=== PATIENT | female | born 1995 | race Caucasian/White ===

== ENCOUNTER 2020-04-23 11:45 | Observation (INO) | payer OTHER ==
[2020-04-23 12:26] LABS: Basophils # (auto) 0 10 ^3/uL (0-0.2); Basophils % (auto) 0.1 % (0.0-2.0); Eosinophils # (auto) 0 10 ^3/uL (0-0.8); Eosinophils % (auto) 0.5 % (0.0-7.0); Hematocrit 36.7 % (36.0-46.0); Hemoglobin 12.5 g/dL (12.2-16.2); Lymphocytes % (auto) 22.4 % (10.0-50.0); Mean Corpuscular Hemoglobin 32.9 pg (28.0-32.0); Mean Corpuscular Hgb Conc. 34.1 g/dL (32.0-36.0); Mean Corpuscular Volume 96.3 fL (80.0-100.0); Monocytes # (auto) 0.6 10 ^3/uL (0-1.3); Neutrophils # (auto) 6.4 10 ^3/uL (1.6-8.6); Nucleated Red Blood Cells % 0.2 %; Platelet Count (auto) 177 10^3/uL (140-450); Red Blood Cells 3.81 10^6/uL (4.0-5.20); Red Cell Distribution Width 14.5 % (11.8-14.3); White Blood Cell 9.1 10^3/uL (4.4-10.8)
[2020-04-23] MEDS ORDERED: PREN-96 PO (12:26)
[2020-04-23 12:40] LABS: Albumin 2.8 g/dL (3.4-5.0); Calcium 8.4 mg/dL (8.5-10.1); Potassium 3.4 mmol/L (3.5-5.1)
[2020-04-23 12:41] LABS: INR 0.92 (0.9-1.15)
[2020-04-23 12:44] LABS: BUN/Creatinine Ratio 8.9; Bilirubin, Total 0.3 mg/dL (0.2-1.0); Total Protein 6.1 g/dL (6.4-8.2)
== END 2020-04-23 13:52 | disposition home or self-care (01) | DRG 833 ==
LOC: LDRP 11:45
PROVIDERS: ADMIT Specialist; ATTEND Specialist
DX: O13.3 Gestational [pregnancy-induced] hypertension without significant proteinuria, third trimester (principal); Z3A.37 37 weeks gestation of pregnancy
CPT/HCPCS: 36415; 59025; 80053; 81002; 84550; 85025; 85610; 85730; G0378

== ENCOUNTER 2020-04-25 07:56 | Observation (INO) | payer OTHER ==
[~2020-04-25 07:56] MED LIST: PREN-96 PO
[2020-04-25 09:59] LABS: Creatinine Clearance, Urine 39.55 mL/min (75-115)
== END 2020-04-25 10:42 | disposition home or self-care (01) ==
LOC: LDRP 07:56
PROVIDERS: ADMIT Obstetrics & Gynecology; ATTEND Obstetrics & Gynecology
DX: O13.3 Gestational [pregnancy-induced] hypertension without significant proteinuria, third trimester (principal); Z3A.37 37 weeks gestation of pregnancy
CPT/HCPCS: 36415; 59025; 81002; 82565; 82575; 84156; G0378

== ENCOUNTER 2020-04-29 13:31 | Observation (INO) | payer OTHER | END 2020-04-29 16:25 | disposition home or self-care (01) | LOC: LDRP 13:31 | PROVIDERS: ADMIT Specialist; ATTEND Specialist | DX: O13.3 Gestational [pregnancy-induced] hypertension without significant proteinuria, third trimester (principal); Z3A.38 38 weeks gestation of pregnancy | CPT/HCPCS: 59025; 76818; 81002; G0378 ==

== ENCOUNTER 2020-05-01 10:35 | Inpatient (IN) | payer OTHER ==
[2020-05-01] VITALS (11 sets, daily range): BP systolic 109–132; BP diastolic 58–73
[~2020-05-01] VITALS: Ht 160 cm; Wt 88.9 kg
[2020-05-01] MEDS ORDERED: LACTATED RINGER'S 1,000 ML IV ONE (12:22)
[2020-05-01] MEDS ORDERED: TERBUTALINE SULFATE 1 MG/ML 1ML VIAL SC ONE (12:30)
[2020-05-01] MEDS: TERBUTALINE SULFATE 1 MG/ML 1ML VIAL SC SCH ×3 (13:10→17:57)
[2020-05-01 14:12] LABS: Urine Bacteria FEW /hpf (None Seen); Urine Blood 1+ /uL (Negative); Urine Specific Gravity 1.011 (1.001-1.035); Urine WBC 11 /hpf (0 - 5)
[2020-05-01 14:16] LABS: Alcohol, Urine < 3.0 mg/dL (0-10); Amphetamine Screen, Urine NEGATIVE (NEGATIVE); Barbiturate Scree,Urine NEGATIVE (NEGATIVE); Benzodiazephine Screen, Urine NEGATIVE (NEGATIVE); Cannabinoid Screen, Urine NEGATIVE (NEGATIVE); Cocaine Screen, Urine NEGATIVE (NEGATIVE); Opiate Scree,Urine NEGATIVE (NEGATIVE); Phencyclidine Screen, Urine NEGATIVE (NEGATIVE)
[2020-05-01] MEDS ORDERED: ceFAZolin 1GM/50ML 50 ML IV ONE (14:32)
[2020-05-01] MEDS ORDERED: TETRACAINE 1% INJ 2 ML VIAL IJ ONE (14:32)
[2020-05-01] MEDS ORDERED: PHENYLEPHRINE HCL 10 MG/ML VL IV ONE (14:40)
[2020-05-01] MEDS ORDERED: ceFAZolin 1GM VL IV ONE (14:40)
[2020-05-01 14:50] LABS: Basophils # (auto) 0 10 ^3/uL (0-0.2); Basophils % (auto) 0.2 % (0.0-2.0); Eosinophils # (auto) 0 10 ^3/uL (0-0.8); Eosinophils % (auto) 0.2 % (0.0-7.0); Hematocrit 37.8 % (36.0-46.0); Hemoglobin 12.9 g/dL (12.2-16.2); Lymphocytes # (auto) 1.9 10 ^3/uL (0.4-5.4); Lymphocytes % (auto) 17.2 % (10.0-50.0); Mean Corpuscular Hemoglobin 32.9 pg (28.0-32.0); Mean Corpuscular Hgb Conc. 34.1 g/dL (32.0-36.0); Mean Corpuscular Volume 96.3 fL (80.0-100.0); Monocytes # (auto) 0.5 10 ^3/uL (0-1.3); Neutrophils # (auto) 8.4 10 ^3/uL (1.6-8.6); Neutrophils % (auto) 77.4 % (37.0-80.0); Nucleated Red Blood Cells % 0.1 %; Platelet Count (auto) 179 10^3/uL (140-450); Red Blood Cells 3.92 10^6/uL (4.0-5.20); Red Cell Distribution Width 14.3 % (11.8-14.3); White Blood Cell 10.8 10^3/uL (4.4-10.8)
[2020-05-01 15:05] LABS: INR 0.96 (0.9-1.15); Partial Thromboplastin Time 28.7 sec (23.0-31.2)
[2020-05-01 15:08] LABS: Albumin 2.9 g/dL (3.4-5.0); Calcium 8.5 mg/dL (8.5-10.1); Potassium 3.2 mmol/L (3.5-5.1)
[2020-05-01 15:12] LABS: BUN/Creatinine Ratio 12.8; Bilirubin, Total 0.5 mg/dL (0.2-1.0); Total Protein 6.2 g/dL (6.4-8.2)
[2020-05-01] MEDS ORDERED: LACTATED RINGER'S 1,000 ML IV SCH (16:02)
[2020-05-01] MEDS ORDERED: HYDROmorphone HCL 2 MG/ML VL IV PRN ×2 (16:15→16:30)
[2020-05-01] MEDS ORDERED: KETOROLAC TROMETH 30 MG/ML 1ML VIAL IV PRN ×2 (16:15→16:30)
[2020-05-01] MEDS ORDERED: ceFAZolin 1GM/50ML 50 ML IV SCH ×2 (16:15→22:00)
[2020-05-01] MEDS ORDERED: GUM (CHEWING) 1 GUM CHEW CHEW ONE (16:15)
[2020-05-01] MEDS ORDERED: ACETAMINOPHEN IV 1000 MG/100ML (10MG/ML) IV PRN (16:15)
[2020-05-01] MEDS ORDERED: ONDANSETRON HCL 4 MG/2 ML VIAL IV PRN ×2 (16:15→16:30)
[2020-05-01] MEDS ORDERED: MIDAZOLAM HCL 1MG/1ML-2 ML VIAL IV PRN (16:30)
[2020-05-01] MEDS ORDERED: DexAMETHasone SOD PHOS 10MG/1ML VIAL INJ IV PRN (16:30)
[2020-05-01] MEDS ORDERED: diphenhdrAMINE HCL 50 MG/1 ML VL IV PRN (16:30)
[2020-05-01] MEDS ORDERED: NALOXONE HCL 0.4 MG/ML VIAL IV PRN (16:30)
[2020-05-01] MEDS ORDERED: LABETALOL HCL 5 MG/ML 4ML SYRINGE IV PRN (16:30)
[2020-05-01] MEDS ORDERED: NALBUPHINE HCL 10 MG/1ml INJECTION SUBCUT ONE (16:30)
[2020-05-01] MEDS ORDERED: ePHEDrine SULFATE 50 MG/ML AMP IV PRN (16:30)
--- NOTE | 2020-05-01 16:50 | NUR ---
Post Op for LDRP: Received patient from PACU via bed to room . Patient A/A/Ox4, abdominal binder and bilateral SCD's are in place, IV fluids placed on pump and infusing per order, incisional site dressing clean/dry/intact and Farias Catheter to gravity draining clear yellow urine. Incentive Spirometer at bedside and instruction on proper use with return demonstration done by patient.
[2020-05-01] MEDS: ceFAZolin 1GM/50ML 50 ML IV SCH (23:02)
[2020-05-02] VITALS (11 sets, daily range): BP systolic 108–135; BP diastolic 54–85
--- NOTE | 2020-05-02 04:55 | NUR ---
Rodriguez catheter dc'd Order to discontinue rodriguez catheter. Rodriguez dc'd with clean technique following deflation of balloon. Patient tolerated well with no complaints of pain. Continue care.
--- NOTE | 2020-05-02 05:00 | NUR ---
Ambulation: Patient OOB with standby assistance by RN. Patient ambulated to bedside chair with steady gait. Pericare provided . Clean gown provided and bed linen changed. Patient remained in bedside chair holding and no distress noted.
[2020-05-02 05:09] LABS: RPR Non Reactive (Non Reactive)
[2020-05-02] MEDS: ceFAZolin 1GM/50ML 50 ML IV SCH ×2 (07:02→14:59)
[2020-05-02 08:24] LABS: Basophils # (auto) 0 10 ^3/uL (0-0.2); Eosinophils # (auto) 0 10 ^3/uL (0-0.8); Eosinophils % (auto) 0.1 % (0.0-7.0); Hemoglobin 11.4 g/dL (12.2-16.2); Mean Corpuscular Volume 95.7 fL (80.0-100.0); Red Blood Cells 3.32 10^6/uL (4.0-5.20)
[2020-05-02 08:27] LABS: Basophils % (auto) 0.2 % (0.0-2.0); Hematocrit 31.8 % (36.0-46.0); Lymphocytes # (auto) 1.7 10 ^3/uL (0.4-5.4); Lymphocytes % (auto) 16.7 % (10.0-50.0); Mean Corpuscular Hemoglobin 34.4 pg (28.0-32.0); Mean Corpuscular Hgb Conc. 35.9 g/dL (32.0-36.0); Monocytes # (auto) 0.6 10 ^3/uL (0-1.3); Monocytes % (auto) 5.7 % (0.0-12.0); Neutrophils # (auto) 7.8 10 ^3/uL (1.6-8.6); Neutrophils % (auto) 77.3 % (37.0-80.0); Platelet Count (auto) 149 10^3/uL (140-450); Red Cell Distribution Width 14.5 % (11.8-14.3); White Blood Cell 10.1 10^3/uL (4.4-10.8)
[2020-05-02] MEDS ORDERED: HYDROcodone-ACET 5/325MG TAB PO PRN ×2 (10:45)
[2020-05-02] MEDS ORDERED: SIMETHICONE 80 MG CHEWABLE TABLET PO PRN (10:45)
[2020-05-02] MEDS: IBUPROFEN 800 MG TAB PO PRN ×2 (11:14→21:41)
--- NOTE | 2020-05-02 16:57 | NUR ---
DRESSING REMOVED FROM LOWER ABDOMEN, DRESSING D/C/I, INCISION CLEAN, NO DRAINAGE, WARMTH, OR DISCOLERATION.
[2020-05-02] MEDS ORDERED: BISACODYL 10 MG RECT SUPP PR PRN (21:00)
[2020-05-02] MEDS: DOCUSATE SOD 100 MG CAP PO SCH (21:40)
--- NOTE | 2020-05-02 22:30 | NUR ---
BM This RN visualized in toilet.
[2020-05-03 03:30] VITALS: BP 130/82
[2020-05-03 07:15] VITALS: BP 119/76
[2020-05-03] MEDS: IBUPROFEN 800 MG TAB PO PRN (09:57)
[2020-05-03] MEDS: DOCUSATE SOD 100 MG CAP PO SCH (09:57)
[2020-05-03 11:00] VITALS: BP 137/86
--- NOTE | 2020-05-03 12:34 | NUR ---
C/S Staple Removal DC Note: Orders received to remove alcon. Alcon removed using sterile technique. Lower abdominal incision approximated, no drainage/redness/inflammation visualized at time of removal. Steri-strips applied. Education provided on incisional care. Patient verbalized understanding and willingness to comply to instructions/teaching provided.
--- NOTE | 2020-05-03 13:00 | NUR ---
Discharge: Discharge instructions given as ordered. Pt encouraged to follow up with [facility]ENT as instructed. All questions and concerns addressed. Patient verbalized understanding. Medication reconciliation completed and copy given to patient. Patient encouraged to prepare to depart unit.
--- NOTE | 2020-05-03 13:35 | NUR ---
Discharge: ID bands matched and ID verification form signed and witnessed. One ID band was removed and placed in chart. Infant taken to vehicle, accompanied by staff, mother of baby, and family member along with all personal belongings. secured in rear-facing car seat by parent and verified by staff. No distress or adverse changes in status since initial assessment was noted at time of departure.
== END 2020-05-03 13:35 | disposition home or self-care (01) | DRG 784 ==
LOC: LDRP 10:35 → OBSVTOIN 13:45 → LDRP 13:46
PROVIDERS: ADMIT Obstetrics & Gynecology; ATTEND Obstetrics & Gynecology
PROC: 0UL70CZ Occlusion of Bilateral Fallopian Tubes with Extraluminal Device, Open Approach (ICD-10-PCS; 2020-05-01)
PROC: 10D00Z1 Extraction of Products of Conception, Low, Open Approach (ICD-10-PCS; principal; 2020-05-01 14:47)
DX: O34.211 Maternal care for low transverse scar from previous cesarean delivery (principal); R71.0 Precipitous drop in hematocrit; O69.81X0 Labor and delivery complicated by cord around neck, without compression, not applicable or unspecified; O77.0 Labor and delivery complicated by meconium in amniotic fluid; Z37.0 Single live birth; Z3A.38 38 weeks gestation of pregnancy; Z30.2 Encounter for sterilization; Z20.828 Contact with and (suspected) exposure to other viral communicable diseases
CPT/HCPCS: 36415; 59025; 76818; 80053; 80307; 81001; 81002; 84112; 85025; 85610; 85730; 86592; 86850; 86900; 86901; 87426; 94762; 96360; 96361; 96365; G0378; J0131; J0690; J2405